=== PATIENT | male | born 1990 ===

== ENCOUNTER 2019-10-15 | Emergency (ER) | payer SELFPAY ==
--- NOTE | 2019-10-15 20:46 | ER ---
Nurse's Notes [facility] Name: Dany Armendariz Age: 29 yrs Sex: Male : 1990 Arrival Date: 10/15/2019 Time: 19:50 Bed 14 Private MD: Diagnosis: Person with feared health complaint in whom no diagnosis is made Presentation: 10/14 20:08 Chief complaint: Patient states: "My job sent me here to get a medical clearance to get ca1 back to work. They want me to be tested with the Perez virus because my daughter had it 5 months ago and pneumonia. She recovered from it". Denies cough, congestion and fever. Coronavirus screen: The patient has NOT traveled to a country currently being monitored by the [facility] within the last 14 days. The patient HAS HAD contact with a known and/or suspected case of coronavirus. The patient does NOT have a fever and/or cough. Proceed with normal triage procedures. Ebola Screen: Patient negative for fever greater than or equal to 101.5 degrees Fahrenheit, and additional compatible Ebola Virus Disease symptoms Patient denies exposure to infectious person. Patient denies travel to an Ebola-affected area in the 21 days before illness onset. No symptoms or risks identified at this time. Initial Sepsis Screen: Does the patient meet any 2 criteria? No. Patient's initial sepsis screen is negative. Does the patient have a suspected source of infection? No. Patient's initial sepsis screen is negative. Risk Assessment: Do you want to hurt yourself or someone else? Patient reports no desire to harm self or others. Onset of symptoms was October 15, 2019. 20:08 Method Of Arrival: Ambulatory ca1 20:08 Acuity: LESLEY 4 ca1 Historical: - Allergies: 20:15 PENICILLINS; ca1 20:15 Codeine; ca1 - Home Meds: 20:15 Metformin Oral [Active]; ca1 - PMHx: 20:15 Diabetes - NIDDM; ca1 - PSHx: 20:15 Finger R; Tonsillectomy; ca1 - Immunization history:: Adult Immunizations up to date, Flu vaccine is not up to date. - Social history:: Smoking status: Patient reports the use of cigarette tobacco products, smokes one pack cigarettes per day. Screenin:41 Abuse screen: Denies threats or abuse. Denies injuries from another. Nutritional rv screening: No deficits noted. Tuberculosis screening: No symptoms or risk factors identified. Fall Risk None identified. Assessment: 20:40 General: Appears in no apparent distress. comfortable, Behavior is calm, cooperative. rv Pain: Denies pain. Neuro: Level of Consciousness is awake, alert, obeys commands, Oriented to person, place, time, situation. Cardiovascular: Patient's skin is warm and dry. Respiratory: Airway is patent. Respiratory: Breath sounds are clear bilaterally. Derm: Skin is intact. Vital Signs: 20:08 BP 142 / 89; Pulse 98; Resp 17 S; Temp 98.2(O); Pulse Ox 96% on R/A; Weight 108.86 kg ca1 (R); Height 5 ft. 9 in. (175.26 cm) (R); Pain 0/10; 20:08 Body Mass Index 35.44 (108.86 kg, 175.26 cm) ca1 ED Course: 19:50 Patient arrived in ED. cl3 20:09 Everette Gordon [facility]C [facility]. la1 20:09 Vidal Ortiz MD is Attending Physician. la1 20:13 Triage completed. ca1 20:15 Arm band placed on right wrist. ca1 20:40 Popeye Taylor, RN is Primary Nurse. rv 20:41 Patient has correct armband on for positive identification. Pulse ox on. NIBP on. rv 20:54 No provider procedures requiring assistance completed. Patient did not have IV access rv during this emergency room visit. Administered Medications: No medications were administered Outcome: 20:45 Discharge ordered by . la1 20:54 Discharged to home ambulatory. rv 20:54 Condition: good 20:54 Discharge instructions given to patient, Instructed on discharge instructions, follow up and referral plans. Demonstrated understanding of instructions, follow-up care. 20:55 Patient left the ED. rv Signatures: Everette Gordon FNP-C V[employer] REH[employer]ILITATION THERAPIST-Cla1 Popeye Taylor RN RN rv Alisson Gillis RN RN ca1 Lewis, Charde cl3
--- NOTE | 2019-10-15 20:46 | EDPHYS ---
Physician Documentation [facility] Name: Dany Armendariz Age: 29 yrs Sex: Male : 1990 Arrival Date: 10/15/2019 Time: 19:50 Bed 14 Private MD: ED Physician Vidal Ortiz HPI: 10/14 20:42 This 29 yrs old Male presents to ER via Ambulatory with complaints of Medical la1 Clearance. 20:42 pt was at work and was told he needed to be tested for COVID 19, states they will not la1 allow him to return unless he is tested, has no sx. Historical: - Allergies: 20:15 PENICILLINS; ca1 20:15 Codeine; ca1 - Home Meds: 20:15 Metformin Oral [Active]; ca1 - PMHx: 20:15 Diabetes - NIDDM; ca1 - PSHx: 20:15 Finger R; Tonsillectomy; ca1 - Immunization history:: Adult Immunizations up to date, Flu vaccine is not up to date. - Social history:: Smoking status: Patient reports the use of cigarette tobacco products, smokes one pack cigarettes per day. ROS: 20:44 Constitutional: Negative for fever, chills, and weight loss, Cardiovascular: Negative la1 for chest pain, palpitations, and edema, Respiratory: Negative for shortness of breath, cough, wheezing, and pleuritic chest pain. Exam: 20:44 Constitutional: This is a well developed, well nourished patient who is awake, alert, la1 and in no acute distress. Chest/axilla: Normal chest wall appearance and motion. Nontender with no deformity. No lesions are appreciated. Cardiovascular: Regular rate and rhythm with a normal S1 and S2. No gallops, murmurs, or rubs. Normal PMI, no JVD. No pulse deficits. Respiratory: Lungs have equal breath sounds bilaterally, clear to auscultation Skin: Warm, dry with normal turgor. Normal color with no rashes, no lesions, and no evidence of cellulitis. Vital Signs: 20:08 BP 142 / 89; Pulse 98; Resp 17 S; Temp 98.2(O); Pulse Ox 96% on R/A; Weight 108.86 kg ca1 (R); Height 5 ft. 9 in. (175.26 cm) (R); Pain 0/10; 20:08 Body Mass Index 35.44 (108.86 kg, 175.26 cm) ca1 MDM: 20:25 Patient medically screened. [facility] 20:44 Data reviewed: vital signs, nurses notes. Counseling: I had a detailed discussion with la1 the patient and/or guardian regarding: the historical points, exam findings, and any diagnostic results supporting the discharge/admit diagnosis, the need for outpatient follow up, a family practitioner, to return to the emergency department if symptoms worsen or persist or if there are any questions or concerns that arise at home. ED course: pt wanted to be tested, stated daughter had vilchis virus 6 months ago, informed pt this is not possible. Pt has no sx, instructed to FU with PCP. Administered Medications: No medications were administered Disposition: 10/15 07:36 Co-signature as Attending Physician, Vidal Ortiz MD I agree with the assessment and [facility] plan of care. Disposition: 10/15/19 20:45 Discharged to Home. Impression: Person with feared health complaint in whom no diagnosis is made. - Condition is Stable. - Medication Reconciliation Form, Thank You Letter form. - Follow up: Private Physician; When: 2 - 3 days; Reason: Recheck today's complaints, Continuance of care, Re-evaluation by your physician. - Problem is new. - Symptoms have improved. Signatures: Vidal Ortiz MD MD cha Attema, Lee, LEAD [employer] ENGINEER-C LEAD [employer] ENGINEER-Cla1 Popeye Taylor, EVAN RN rv Alisson Gillis RN RN ca1 Corrections: (The following items were deleted from the chart) 10/14 20:55 20:45 10/15/2019 20:45 Discharged to Home. Impression: Person with feared health rv complaint in whom no diagnosis is made. Condition is Stable. Forms are Medication Reconciliation Form, Thank You Letter, Antibiotic Education, Prescription Opioid Use. Follow up: Private Physician; When: 2 - 3 days; Reason: Recheck today's complaints, Continuance of care, Re-evaluation by your physician. Problem is new. Symptoms have improved. la1
== END 2019-10-15 20:55 | disposition home or self-care (01) ==
DX: Z71.1 Person with feared health complaint in whom no diagnosis is made (principal)
CPT/HCPCS: 99283